=== PATIENT | female | born 1955 | race Caucasian/White ===

== ENCOUNTER → 2023-12-06 16:37 | Outpatient (REF) | payer MEDICARE, SELFPAY | LOC: RAD 16:37 | PROVIDERS: ATTENDING PHYSICIAN Family Medicine | DX: R10.11 Right upper quadrant pain (principal) | CPT/HCPCS: 76700 ==

== ENCOUNTER → 2024-04-11 13:13 | Outpatient (REF) | payer MEDICARE, SELFPAY | LOC: PAVMRI 13:13 | PROVIDERS: ATTENDING PHYSICIAN Specialist; FAMILY PHYSICIAN Family Medicine | DX: R10.11 Right upper quadrant pain (principal); K86.2 Cyst of pancreas | CPT/HCPCS: 74183; A9575 ==

== ENCOUNTER → 2024-07-04 16:04 | Outpatient (REF) | payer MEDICARE, SELFPAY | LOC: RAD 16:04 | PROVIDERS: ATTENDING PHYSICIAN Family Medicine | DX: K82.4 Cholesterolosis of gallbladder (principal) | CPT/HCPCS: 76700 ==

== ENCOUNTER → 2024-07-11 07:41 | Outpatient (REF) | payer MEDICARE, SELFPAY | LOC: RAD 07:41 | PROVIDERS: ATTENDING PHYSICIAN Specialist; FAMILY PHYSICIAN Family Medicine | DX: R10.11 Right upper quadrant pain (principal) | CPT/HCPCS: 78227; A9537; J2805 ==

== ENCOUNTER → 2025-08-28 14:39 | Outpatient (REF) | payer MEDICARE, SELFPAY | LOC: WDC 14:39 | PROVIDERS: ATTENDING PHYSICIAN Family Medicine | DX: Z00.00 Encounter for general adult medical examination without abnormal findings (principal); Z12.31 Encounter for screening mammogram for malignant neoplasm of breast | CPT/HCPCS: 77063; 77067 ==

== ENCOUNTER → 2025-09-09 14:06 | Outpatient (REF) | payer MEDICARE, SELFPAY | LOC: HWRAD 14:06 | PROVIDERS: ATTENDING PHYSICIAN Surgery; FAMILY PHYSICIAN Family Medicine | DX: R31.29 Other microscopic hematuria (principal); K82.4 Cholesterolosis of gallbladder | CPT/HCPCS: 76700; 76775 ==